=== PATIENT | male | born 1950 | race Caucasian/White ===

== ENCOUNTER 2023-07-03 06:35 | Day surgery (SDC) | payer OTHER, SELFPAY ==
[2023-06-27 10:25] LABS: Hematocrit 41.1 % (39.0-52.0); Hemoglobin 14.3 g/dL (13.0-18.0); Mean Corp Hgb Conc. 34.8 g/dL (33.0-37.0); Mean Corpuscular Hgb 33.6 pg (27.0-31.0); Mean Corpuscular Volume 96.5 fL (80.0-94.0); Mean Platelet Volume 10.8 fL (7.4-10.4); Platelet Count 109 10^3/uL (130-400); Red Blood Cell Count 4.26 10^6/uL (4.70-6.10); Red Cell Dist. Width 14.3 % (11.5-14.5); White Blood Cell Count 5.6 10^3/uL (4.8-10.8)
[2023-06-27 10:38] LABS: Blood Urea Nitrogen 16 mg/dl (9-20); Calcium 9.2 mg/dl (8.4-10.2); Carbon Dioxide 26 mmol/L (22-30); Chloride 103 mmol/L (98-107); Glucose 106 mg/dl (70-99); Potassium 4.2 mmol/L (3.5-5.1); Sodium 138 mmol/L (135-145); eGFR > 60.00
[2023-06-27 10:55] LABS: APTT 33.2 Sec (23.4-35.0)
[2023-06-27 12:37] VITALS: BMI 39.5
--- NOTE | 2023-06-30 15:27 | PTCARENOTE ---
Dr. Phillips made aware of abnormal EKG. Attempted to obtain information from pt's director clinical research at [employer], still have not received. He stated 'it's ok to proceed based on his EKG'.
[2023-07-03] VITALS (7 sets, daily range): BP systolic 105–134; BP diastolic 57–74; BMI 39.5; BMI 36.7
[2023-07-03] MEDS: NORMOSOL-R 1000 IV (10:22)
[2023-07-03] MEDS: NSS 1000 IV (18:05)
[2023-07-03 18:10] LABS: Blood Urea Nitrogen 21 mg/dl (9-20); Calcium 8.4 mg/dl (8.4-10.2); Carbon Dioxide 22 mmol/L (22-30); Chloride 101 mmol/L (98-107); Estimated Creatinine Clearance 70 ml/min; Glucose 177 mg/dl (70-99); Potassium 4.4 mmol/L (3.5-5.1); Sodium 135 mmol/L (135-145); eGFR > 60.00
--- NOTE | 2023-07-03 19:25 | PTCARENOTE ---
Pt received from PACU s/p christiano partial prostatectomy. AAOx3 but drowsy. On 6L nasal cannula sating 94%. CBI infusing. Purdy draining punch color urine. Abdominal lap sites CDI. IVF infusing through PIV per order. Family at bedside.
--- NOTE | 2023-07-03 20:00 | PTCARENOTE ---
Resumed care of pt laying in bed drowsy but arousable to voice. Pt AAOx3, family at bedside. Pt reports pain at tolerable level at this time. Pt asking to eat. Pt has some pretzels at bedside and given [place]. Continuous pox in place, pox 95% on
on 6 LO2 NC. Lungs dec @ bases. JUAN. Round obese abd. 6 abd lap sites with surg glue open to air, assessed. [address] with CBI- blood tinged at this time, will keep clot free per MD order. IVF infusing as ordered. No issues to report at
this time. Will monitor.
[2023-07-03] MEDS: TORADOL 15 MG IV (21:14)
[2023-07-03] MEDS: SENOKOT 8.59999999999999964 MG PO (21:14)
[2023-07-03] MEDS: REQUIP 3 MG PO (21:15)
[2023-07-04] MEDS: NSS 1000 IV (01:25)
[2023-07-04] MEDS: TORADOL 15 MG IV ×4 (01:26→20:24)
[2023-07-04 03:33] VITALS: BP 111/55
[2023-07-04 05:03] LABS: Hematocrit 34.8 % (39.0-52.0); Hemoglobin 12.1 g/dL (13.0-18.0); Mean Corp Hgb Conc. 34.8 g/dL (33.0-37.0); Mean Corpuscular Hgb 33.7 pg (27.0-31.0); Mean Corpuscular Volume 96.9 fL (80.0-94.0); Mean Platelet Volume 10.2 fL (7.4-10.4); Platelet Count 112 10^3/uL (130-400); Red Blood Cell Count 3.59 10^6/uL (4.70-6.10); Red Cell Dist. Width 13.8 % (11.5-14.5); White Blood Cell Count 14.1 10^3/uL (4.8-10.8)
[2023-07-04 05:27] LABS: Blood Urea Nitrogen 21 mg/dl (9-20); Calcium 7.6 mg/dl (8.4-10.2); Carbon Dioxide 22 mmol/L (22-30); Chloride 106 mmol/L (98-107); Estimated Creatinine Clearance 77 ml/min; Glucose 138 mg/dl (70-99); Potassium 4.6 mmol/L (3.5-5.1); Sodium 133 mmol/L (135-145); eGFR > 60.00
[2023-07-04 07:37] VITALS: BP 119/57
--- NOTE | 2023-07-04 08:35 | W.PN.URO.CBU ---
Today's Communication / Plan
-
Discharge planning
Assessment / Plan
-
72M POD 1 s/p robotic simple prostatectomy
- PO pain control
- OOB/ambulate
- IS
- Regular diet
- Clamp CBI
Likely discharge tomorrow
Diagnosis
-
Date of Service: July 04, 2023
-
Patient Diagnosis:
BPH
Urinary retention
Post Op Day: s/p RAL simple prostatectomy 07/03
Subjective
-
pain controlled
Has not needed irrigation, minimal hematuria
some bladder spasm a few times overnight
Objective
-
Vital Signs
Temp Pulse Resp BP Pulse Ox
98.0 F 92 20 111/55 95
07/04/23 03:33 07/04/23 03:33 07/04/23 03:33 07/04/23 03:33 07/04/23 03:33
Intake and Output
07/03/23 07/04/23 07/05/23
06:59 06:59 06:59
Intake Total 2166 / 2166
Output Total 750 / 750
Balance 1416 / 1416
Intake:
Oral fluids 491 / 491
IV fluids (Total) 1675 / 1675
Norm 50 / 50
Nss 1,000 ml @ 125 mls/hr IV . 125 / 125
Q8H [facility] Rx#:[id number]
Output:
True Urine Output from CBI 750 / 750
Laboratory Results
07/04/23 04:18
07/04/23 04:18
Physical Exam
-
General - well developed, well nourished, no acute distress
Chest - clear bilaterally
Abdomen - soft, non-tender
- franks in place, light pink off CBI
Skin - warm & dry with no rash
Neuro - AOx3, no motor deficits
Extremities - no clubbing, no cyanosis, no edema
Incision - clean, dry
Dressing - clean, dry, intact
[2023-07-04] MEDS: NORVASC 10 MG PO (09:01)
[2023-07-04] MEDS: CRESTOR 20 MG PO (09:02)
[2023-07-04] MEDS: ALDACTONE 50 MG PO (09:03)
[2023-07-04] MEDS: SENOKOT 8.59999999999999964 MG PO ×2 (09:03→20:25)
[2023-07-04] MEDS: PROSCAR 5 MG PO (09:03)
[2023-07-04] MEDS: DETROL LA 4 MG PO (09:24)
[2023-07-04 12:21] VITALS: BP 107/53
[2023-07-04] MEDS: STERILE WATER FOR INJECTION 10 ML IV (13:16)
[2023-07-04] MEDS: ROCEPHIN 1000 MG IV (13:16)
--- NOTE | 2023-07-04 14:40 | CM ---
Chart reviewed. Spoke with pt at bedside
Pt reports he lives alone in an apartment. There are no steps to enter or within apt
He does have family support
Independent, shops, prepares meals
Denies DME, past SNF/HH
Will have a way home at d/c
PCP - Dr Jenn Wood
Pharm - [facility]
CM will follow for d/c needs
Plan - anticipate home no needs
[2023-07-04 15:48] VITALS: BP 108/56
[2023-07-04] MEDS: REQUIP 3 MG PO (20:25)
[2023-07-04 23:25] VITALS: BP 103/64
[2023-07-05] MEDS: TORADOL 15 MG IV (02:02)
[2023-07-05 06:49] LABS: Hematocrit 33.3 % (39.0-52.0); Hemoglobin 11.6 g/dL (13.0-18.0); Mean Corp Hgb Conc. 34.8 g/dL (33.0-37.0); Mean Corpuscular Volume 97.7 fL (80.0-94.0); Mean Platelet Volume 10.8 fL (7.4-10.4); Platelet Count 100 10^3/uL (130-400); Red Blood Cell Count 3.41 10^6/uL (4.70-6.10); Red Cell Dist. Width 14.3 % (11.5-14.5); White Blood Cell Count 9.6 10^3/uL (4.8-10.8)
[2023-07-05 07:00] VITALS: BP 116/66
[2023-07-05 07:20] LABS: Blood Urea Nitrogen 23 mg/dl (9-20); Calcium 7.8 mg/dl (8.4-10.2); Carbon Dioxide 22 mmol/L (22-30); Chloride 107 mmol/L (98-107); Estimated Creatinine Clearance 97 ml/min; Glucose 111 mg/dl (70-99); Sodium 134 mmol/L (135-145); eGFR > 60.00
[2023-07-05] MEDS: SENOKOT 8.59999999999999964 MG PO (09:25)
[2023-07-05] MEDS: CRESTOR 20 MG PO (09:26)
[2023-07-05] MEDS: PROSCAR 5 MG PO (09:26)
[2023-07-05] MEDS: ALDACTONE 50 MG PO (09:31)
[2023-07-05] MEDS: NORVASC 10 MG PO (09:31)
--- NOTE | 2023-07-05 10:46 | W.PN.URO.CBU ---
Today's Communication / Plan
-
Discharge
Assessment / Plan
-
72M POD 2 s/p robotic simple prostatectomy
- PO pain control
- OOB/ambulate
- IS
- Regular diet
CM consult for VN per patient request
- Discharge today
Diagnosis
-
Date of Service: July 05, 2023
-
Patient Diagnosis:
BPH
Urinary retention
Post Op Day: s/p RAL simple prostatectomy 07/03
Subjective
-
pain controlled
ambulating
tolerating diet
Objective
-
Vital Signs
Temp Pulse Resp BP Pulse Ox
98.3 F 80 18 124/83 93
07/05/23 07:00 07/05/23 09:31 07/05/23 07:00 07/05/23 09:31 07/05/23 09:00
Intake and Output
07/04/23 07/05/23 07/06/23
06:59 06:59 06:59
Intake Total 2166 / 2166 1020 / 1020
Output Total 750 / 750 1700 / 1700
Balance 1416 / 1416 -680 / -680
Intake:
Oral fluids 491 / 491 1020 / 1020
IV fluids (Total) 1675 / 1675
Norm 50 / 50
Nss 1,000 ml @ 125 mls/hr IV . 125 / 125
Q8H [facility] Rx#:[id number]
Output:
Urine, Franks 1700 / 1700
True Urine Output from CBI 750 / 750
Laboratory Results
07/05/23 05:46
07/05/23 05:46
Physical Exam
-
General - well developed, well nourished, no acute distress
Chest - clear
Abdomen - soft, non-tender
franks in place, light red urine without clots
Skin - warm & dry with no rash
Neuro - AOx3, no motor deficits
Extremities - no clubbing, no cyanosis, no edema
Incision - clean, dry
Dressing - clean, dry, intact
--- NOTE | 2023-07-05 11:18 | CM ---
Addendum entered by Maryan Flores, RN 07/05/23 12:39:
Changed [facility] can not accept patient , Called [facility] Jerri said she wpild let oncalll nurse know
PLAN Home with [facility] fax [phone]
Original Note:
entered order for discharge.
SPoke with patient and dgt Ximena . They requested [facility].Refferal placed in car eport .
LM with [facility] [phone] .Checking if they accept [facility].
Yokasta will drive patient home.
Pt has had [facility]dy for past 3 months and said he knows how to care for [facility].
PLAN Home with [facility] fax .
[2023-07-05] MEDS: DETROL LA 4 MG PO (11:26)
== END 2023-07-05 12:49 | disposition home or self-care (01) ==
LOC: SDS 06:35
PROVIDERS: ATTENDING PHYSICIAN Urology; OTHER PHYSICIAN Internal Medicine Cardiovascular Disease
DX: N40.1 Benign prostatic hyperplasia with lower urinary tract symptoms (principal); R33.8 Other retention of urine; Z87.448 Personal history of other diseases of urinary system
CPT/HCPCS: 55866; 88307; 36415; 80048; 85014; 85018; 85027; 85610; 85730; 86850; 86900; 86901; 88344; 93005